=== PATIENT | female | born 1970 | race Caucasian/White ===

== ENCOUNTER 2023-12-25 18:36 | Emergency (ER) | payer BC, OTHER ==
[2023-12-25] MEDS: Albuterol/Ipratropium 3.0-0.5 MG/3 ML Neb Soln NEB ONE (20:32)
[2023-12-25] MEDS: Albuterol 0.083% 2.5 MG/3 ML Neb Soln NEB ONE (20:32)
[2023-12-25 22:03] VITALS: BP 158/82; PULSE 103
[2023-12-25] MEDS: Dexamethasone 4 MG Tab PO ONE (22:18)
== END 2023-12-25 22:22 | disposition home or self-care (01) ==
LOC: MW.ED 18:36
DX: J40 Bronchitis, not specified as acute or chronic (principal); I10 Essential (primary) hypertension; Z79.899 Other long term (current) drug therapy; Z79.51 Long term (current) use of inhaled steroids
CPT/HCPCS: 71046; 99285; J8540; 99283; J7620-GY

== ENCOUNTER 2024-06-19 08:57 | Day surgery (SDC) | payer OTHER ==
[2024-06-19] MEDS ORDERED: Propofol 200 MG/20 ML SDV ONE ×2 (09:41→10:35)
[2024-06-19] MEDS ORDERED: Lidocaine 2% 5 ML SDV ONE (10:22)
[2024-06-19] MEDS: Lactated Ringers 1,000 ML IV SCH (10:40)
[2024-06-19] MEDS ORDERED: Lactated Ringers 1,000 ML IV SCH (11:15)
[2024-06-19 12:46] VITALS: BP 132/75; PULSE 75
== END 2024-06-19 11:55 | disposition home or self-care (01) ==
LOC: MW.SDS 08:57
PROVIDERS: ATTEND Surgery
DX: Z12.11 Encounter for screening for malignant neoplasm of colon (principal); D12.4 Benign neoplasm of descending colon; K57.30 Diverticulosis of large intestine without perforation or abscess without bleeding; Z86.0100 Personal history of colon polyps, unspecified; Z80.0 Family history of malignant neoplasm of digestive organs; E03.9 Hypothyroidism, unspecified; I10 Essential (primary) hypertension; E78.00 Pure hypercholesterolemia, unspecified; Z87.891 Personal history of nicotine dependence; Z79.890 Hormone replacement therapy; Z79.899 Other long term (current) drug therapy
CPT/HCPCS: 45380; J2704; J7120; J3490